=== PATIENT | male | born 1965 | race Caucasian/White ===

== ENCOUNTER 2023-01-30 06:03 | Emergency (ER) | payer MEDICAID, OTHER ==
[~2023-01-30] VITALS: Ht 167.6 cm; Wt 66.9 kg
[2023-01-30] MEDS ORDERED: PROPARACAINE 0.5% OPHTH SOL 15ML OD ONE (07:00)
[2023-01-30] MEDS ORDERED: FLUORESCEIN OPHTH 1MG STRIP OD ONE (07:00)
[2023-01-30] MEDS ORDERED: BOOSTRIX VACCINE (TETANUS/DIPHTH/ACEL. PERTUSSIS) 0.5ML SYR IM.IMMUN ONE (07:15)
[2023-01-30] MEDS ORDERED: ERYTHROMYCIN OPHTH OINT OD ONE (07:15)
[2023-01-30] MEDS ORDERED: ERYTOIN8 OD (07:23)
[2023-01-30 07:37] VITALS: BP 148/88; TEMP 97; O2SAT 100
== END 2023-01-30 07:38 | disposition home or self-care (01) ==
LOC: M ED 06:03
DX: T15.01XA Foreign body in cornea, right eye, initial encounter (principal); T26.01XA Burn of right eyelid and periocular area, initial encounter; X58.XXXA Exposure to other specified factors, initial encounter; Y92.89 Other specified places as the place of occurrence of the external cause; Y93.89 Activity, other specified; Y99.0 Civilian activity done for income or pay

== ENCOUNTER 2025-04-13 18:06 | Emergency (ER) | payer BC, OTHER ==
[~2025-04-13] VITALS: Ht 170.2 cm; Wt 73.0 kg
[~2025-04-13 18:06] MED LIST: ERYTOIN8 OD
[2025-04-13] MEDS: KETOROLAC 30 MG/ML 1 ML VIAL IM ONE (20:00)
[2025-04-13] MEDS ORDERED: METH-1164 PO (20:35)
[2025-04-13 20:41] VITALS: BP 129/81; TEMP 98.2; O2SAT 98
== END 2025-04-13 20:42 | disposition home or self-care (01) ==
LOC: M ED 18:06
DX: M54.50 Low back pain, unspecified (principal); Z79.2 Long term (current) use of antibiotics
CPT/HCPCS: 96372; 99283; J1885